=== PATIENT | female | born 1995 | race Caucasian/White ===

== ENCOUNTER 2018-05-07 02:49 | Emergency (ER) | payer MEDICAID ==
[~2018-05-07] VITALS: Ht 165.1 cm; Wt 54.4 kg
[2018-05-07 02:58] VITALS: Ht 165.1 cm; Wt 54.4 kg
[2018-05-07] MEDS ORDERED: NAPROSYN500 MG PO (03:39)
[2018-05-07 03:58] VITALS: BP 138/85
== END 2018-05-07 04:00 | disposition home or self-care (01) ==
LOC: D.ER 02:49
DX: S90.32XA Contusion of left foot, initial encounter (principal); W22.09XA Striking against other stationary object, initial encounter; Y93.89 Activity, other specified; Y92.019 Unspecified place in single-family (private) house as the place of occurrence of the external cause; F17.200 Nicotine dependence, unspecified, uncomplicated